=== PATIENT | female | born 1950 | race Caucasian/White ===

== ENCOUNTER 2018-01-09 08:12 | Day surgery (SDC) | payer MEDICARE ==
[2018-01-08 09:20] VITALS: BMI 34.7
--- NOTE | 2018-01-09 09:25 | RAD ---
LUMBAR SPINE 3 VIEWS: Date: 01/09/18 HISTORY: Low back pain. Degenerative disc disease. COMPARISON: None. FINDINGS: Five non-rib bearing lumbar-type vertebrae. There is severe narrowing between the L2-L5 spinous proce sses with sclerosis and remodeling. There is anterolisthesis, degenerative, of L4 over L5, 3.0 mm. Se stepan degenerative disc space disease at L5-S1. IMPRESSION: Advanced spondylosis. POS: [facility]
--- NOTE | 2018-01-09 11:48 | CT ---
CT LUMBAR SPINE WITHOUT CONTRAST: Date: 01/09/18 HISTORY: M54.5 low back pain. M51.36 degenerative disc disease. COMPARISON: Spine radiographs same date. FINDINGS: Moderate atherosclerotic plaque. There is focal ectasia of the infrarenal abdominal aorta measuring u p to 2.6 cm. This is not aneurysmal. No retroperitoneal adenopathy. No acute fracture or malalignment. There are severe degenerative changes in the spinous processes of L2-L5 with end plate sclerosis and remodeling. Levels are as follows: L1-2: Moderate posterior degenerative disc space narrowing. There is low grade posterior disc bulge. No neural foraminal or spinal canal narrowing. L2-3: Moderate degenerative posterior disc space height loss. There is a posterior disc osteophyte c omplex, broad based, narrowing the spinal canal to approximately 9.0 mm. There is mild bilateral neur al foraminal narrowing. L3-4: Moderate posterior degenerative disc space height loss. Moderate facet arthrosis. Circumferent ial disc bulge. Bilateral subforaminal disc osteophyte complexes. Moderate bilateral neural foraminal narrowing with abutment of the exiting nerve roots. Spinal canal measures approximately 8.0 mm. Mode rate ligamentum flavum hypertrophy. L4-5: Severe degenerative facet arthrosis. Ligamentum flavum hypertrophy. Anterolisthesis, degenerat kiran in nature, is approximately 3-4 mm. There is moderate bilateral neural foraminal narrowing. There is narrowing of the spinal canal approximately 5.0 mm. L5-S1: Circumferential disc bulge with large posterior disc osteophyte complex. Moderate to severe f acet arthrosis. Moderate to severe bilateral neural foraminal narrowing with abutment of the exiting nerve roots. IMPRESSION: Advanced spondylosis as described. POS: [facility]
--- NOTE | 2018-01-09 14:27 | MRI ---
MRI LUMBAR SPINE WITHOUT CONTRAST: INDICATION: History of low back pain and bilateral hip pain radiating into the feet. TECHNIQUE: Multiplanar, multisequence MR images were obtained of the lumbar spine without IV contrast. Comparis ons were made with the lumbar spine radiographs dated 01/09/2018. FINDINGS: There are 5 lumbar-type vertebrae. There is very slight grade I anterolisthesis of L4 on L5. The co nus is seen to terminate at approximately L1. No acute fracture is evident. Motion artifact heavily degrades image quality. At L5-S1, there is a broad-based disk-osteophyte complex with advanced facet joint degenerative [place] e and loss of disk space height inducing mild to moderate right and moderate to severe left neural fo raminal narrowing. At L4-5, there is a broad-based disk-osteophyte complex and facet joint degenerative change inducing moderate to severe central canal narrowing with mild to moderate bilateral neural foraminal narrowing . At L3-4, there is a broad-based bulge with facet hypertrophy inducing mild central canal stenosis wit h mild bilateral neural foraminal narrowing. At L2-3, there is a broad-based bulge and mild facet joint degenerative change. At L1-L2, there is a mild broad-based bulge. There is no appreciable central canal or neural foramin al narrowing. At T12-L1, there is a mild broad-based bulge without appreciable central canal or neural foraminal na rrowing. IMPRESSION: Multilevel spondylosis of the lumbar spine most prominent at L4-5 and L5-S1 as above. POS: [facility]
== END 2018-01-09 14:02 | disposition home or self-care (01) ==
LOC: SDC/OP 08:12 → EDSTATUS 12:00 → SDC/OP 14:02
PROVIDERS: ATTEND Physician Assistant Surgical
DX: M51.36 Other intervertebral disc degeneration, lumbar region (principal); M25.78 Osteophyte, vertebrae; M47.816 Spondylosis without myelopathy or radiculopathy, lumbar region; M43.16 Spondylolisthesis, lumbar region; M48.07 Spinal stenosis, lumbosacral region; F40.240 Claustrophobia; Z79.1 Long term (current) use of non-steroidal anti-inflammatories (NSAID); Z79.82 Long term (current) use of aspirin; Z79.891 Long term (current) use of opiate analgesic; Z79.899 Other long term (current) drug therapy; Z96.653 Presence of artificial knee joint, bilateral; Z98.890 Other specified postprocedural states
CPT/HCPCS: 72100; 72131; 72148

== ENCOUNTER 2018-03-12 07:28 | Outpatient (CLI) | payer MEDICARE ==
[2018-03-12 10:39] LABS: Hemoglobin 13.3 g/dL (12.0-16.0); Mean Corpuscular HGB CONC 33.8 g/dL (32.0-36.0); Mean Corpuscular Hemoglobin 29.5 pg (27.0-31.0); Mean Corpuscular Volume 87.3 fL (78.0-98.0); Mean Platelet Volume 7.1 fL (7.4-10.4); Platelet Count 302 thou/uL (130-400); RBC Distribution Width 12.7 % (11.5-14.5); Red Blood Cell (RBC) Count 4.51 mill/uL (4.20-5.40); White Blood Cell (WBC) Count 9.9 thou/uL (4.8-10.8)
[2018-03-12 10:46] LABS: PTT 32.1 SEC (22.9-36.1); Prothrombin Time 13.7 SEC (12.0-14.7)
[2018-03-12 10:58] LABS: Anion Gap 15 mmol/L (10-20); BUN (Urea Nitrogen) 10 mg/dL (9.8-20.1); Calc. Creatinine Clearance 0 mL/min (70-130); Calcium 9.9 mg/dL (7.8-10.44); Carbon Dioxide 21 mmol/L (23-31); Chloride 104 mmol/L (98-107); Estimated GFR-MDRD 72; Glucose 138 mg/dL (80-115); Potassium 3.8 mmol/L (3.5-5.1); Sodium 136 mmol/L (136-145)
== END 2018-03-12 07:29 | disposition home or self-care (01) ==
LOC: LABBT 07:28
PROVIDERS: ATTEND Surgery
DX: Z01.812 Encounter for preprocedural laboratory examination (principal); M48.061 Spinal stenosis, lumbar region without neurogenic claudication; M54.16 Radiculopathy, lumbar region
CPT/HCPCS: 80048; 85027; 85610; 85730

== ENCOUNTER 2018-03-19 06:10 | Day surgery (SDC) | payer MEDICARE ==
[2018-03-12 10:39] VITALS: BMI 33.0
[2018-03-19] MEDS ORDERED: CEFAZOLIN 2 GM/50 ML BAG ONE (07:50)
[2018-03-19] MEDS ORDERED: Midazolam HCl 2 mg/2 ml Vial ONE (09:38)
[2018-03-19] MEDS ORDERED: Sodium Chloride 0.9% 10 ML ONE (09:41)
[2018-03-19] MEDS ORDERED: Thrombin 5000 UNITS/5 ML VIAL ONE (09:41)
[2018-03-19] MEDS ORDERED: Bacitracin Zinc Ointment 30 gm TUBE ONE (09:41)
[2018-03-19] MEDS ORDERED: Fentanyl 100 MCG/2 ML VIAL ONE ×3 (09:45→12:50)
[2018-03-19] MEDS ORDERED: ePHEDrine/0.9% NaCl/PF SYRINGE 50 mg/10 ml ONE ×2 (10:37→15:07)
[2018-03-19] MEDS ORDERED: Acetaminophen/Codeine 30-300mg Tablet PO PRN (12:46)
[2018-03-19] MEDS ORDERED: Acetaminophen 325 MG TAB PO PRN (12:46)
[2018-03-19] MEDS ORDERED: Morphine 2 MG/ML SYRINGE SLOW IVP PRN (12:46)
[2018-03-19] MEDS ORDERED: Milk Of Magnesia 30 ML UDCUP PO PRN (12:46)
[2018-03-19] MEDS ORDERED: Fleet Enema 133 ML BOT PR PRN (12:46)
[2018-03-19] MEDS ORDERED: HYDROcodone/Acetaminophen 7.5/325 mg Tablet PO PRN (12:46)
[2018-03-19] MEDS ORDERED: Bisacodyl 10 MG SUPP PR PRN (12:46)
[2018-03-19] MEDS ORDERED: Mag-Al 1200 mg/1200 mg/30 ML UDCUP PO PRN (12:46)
[2018-03-19] MEDS ORDERED: CEFAZOLIN/Water 2 GM/20 ML SYRINGE SLOW IVP SCH (13:00)
[2018-03-19] MEDS ORDERED: Lidocaine 1% PF 5 ML VIAL ONE (15:07)
[2018-03-19] MEDS ORDERED: Metoclopramide HCl 10 MG/2 ML VIAL ONE (15:07)
[2018-03-19] MEDS ORDERED: Rocuronium Bromide 10 MG/ML (10ML VIAL) ONE (15:07)
[2018-03-19] MEDS ORDERED: Ondansetron PF 4 MG/2 ML Vial ONE (15:07)
[2018-03-19] MEDS ORDERED: PHENYLEPHRINE-NS 100 MCG/ML 10 ML SYRINGE ONE (15:07)
[2018-03-19] MEDS ORDERED: Ketorolac Tromethamine 30 MG/ML VIAL ONE (15:07)
[2018-03-19] MEDS ORDERED: Dexamethasone 20 MG/5 ML VIAL ONE (15:07)
[2018-03-19] MEDS ORDERED: diphenhydrAMINE 50 MG/ML VIAL ONE (15:07)
[2018-03-19] MEDS ORDERED: PROPOFOL 200 MG/20 ML VIAL ONE (15:07)
[2018-03-19] MEDS ORDERED: Glycopyrrolate 0.2 MG/ML 5 ML SYRINGE ONE (15:07)
[2018-03-19] MEDS: CEFAZOLIN 2 GM/50 ML-DEXTROSE 2 GM in Premix Bag 1 BAG IVPB SCH ×2 (16:00→23:36)
[2018-03-19] MEDS: Cyclobenzaprine 10 MG TAB PO PRN (19:40)
[2018-03-19] MEDS: traMADol HCl 50 MG TAB PO PRN (19:40)
[2018-03-19] MEDS ORDERED: hydrOXYzine 25 MG TAB PO SCH (21:00)
[2018-03-20] MEDS: traMADol HCl 50 MG TAB PO PRN (06:42)
[2018-03-20] MEDS: Cyclobenzaprine 10 MG TAB PO PRN (06:42)
[2018-03-20 07:57] VITALS: BP 120/61; TEMP 98.5
[2018-03-20] MEDS ORDERED: Citalopram 20 MG TAB PO SCH (09:00)
--- NOTE | 2018-03-20 10:42 | OP ---
DATE OF PROCEDURE: 03/19/2018 OPERATING ROOM: OR 11. WOUND CLASSIFICATION: Type 1 wound. [employer] BOOKKEEPER: Erwin Green PA-C. PREPROCEDURE DIAGNOSIS: Lumbar stenosis with low back and leg pain with lateral disk extrusion. POSTPROCEDURE DIAGNOSIS: Lumbar stenosis with low back and leg pain with lateral disk extrusion. PROCEDURES PERFORMED: 1. L4-L5 and L5-S1 laminectomies, partial facetectomies, and foraminotomies. 2. Left L5-S1 transfacet approach for decompression of spinal cord and nerve roots with lateral diskectomy. 3. Use of operative microscope for microdissection. DESCRIPTION OF PROCEDURE: After informed consent was obtained from the patient, the patient was positioned in prone. Proper patient, pause, and identification were carried out. The wound was then sterilely cleansed, prepared and draped. Proper patient, pause, and identification were carried out again. The wound was then opened with a combination of sharp, monopolar, and blunt dissection. The L4, L5, and S1 dorsal spines and lamina were identified and removed. Following localization, we had excellent decompression of the common dural tube. We worked out in the left L5-S1 transfacet region and foramen to decompress the left L5 nerve root. An osteophytic disc was identified and soft fragments were removed. I was satisfied with the decompression of left L5 root. Copious irrigation occurred throughout. The wound was then closed in anatomic layers following hemostasis and sprinkled vancomycin powder. The patient then emerged from anesthesia. Job ID: [id number]
--- NOTE | 2018-03-20 20:55 | EKG ---
Test Reason : PREOP Blood Pressure : / mmHG Vent. Rate : 060 BPM Atrial Rate : 060 BPM P-R Int : 146 ms QRS Dur : 086 ms QT Int : 446 ms P-R-T Axes : 052 000 021 degrees QTc Int : 446 ms Normal sinus rhythm Normal ECG When compared with ECG of 19-JUN-2016 11:47, No significant change was found Confirmed by Jennifer GRIMM ([id number]) on 03/20/2018 8:55:15 PM Referred By: DERRICK Confirmed By:Jennifer GRIMM
== END 2018-03-20 10:51 | disposition home or self-care (01) ==
LOC: SDC 06:10 → SJJU 14:05 → SDC 03-20 10:51
PROVIDERS: ATTEND Surgery
PROC: 01NB0ZZ Release Lumbar Nerve, Open Approach (ICD-10-PCS; principal; 2018-03-19)
PROC: 0SB20ZZ Excision of Lumbar Vertebral Disc, Open Approach (ICD-10-PCS; 2018-03-19)
DX: M48.061 Spinal stenosis, lumbar region without neurogenic claudication (principal); M51.26 Other intervertebral disc displacement, lumbar region; M43.16 Spondylolisthesis, lumbar region; Z96.653 Presence of artificial knee joint, bilateral; Z96.641 Presence of right artificial hip joint; Z79.1 Long term (current) use of non-steroidal anti-inflammatories (NSAID); Z79.899 Other long term (current) drug therapy
CPT/HCPCS: 76000; 93005; 93010; 96374; J1100; J1200; J1885; J2001; J2250; J2405; J2704; J2765; J3010; J3370; J3490

== ENCOUNTER 2018-05-07 10:31 | Outpatient (CLI) | payer MEDICARE ==
--- NOTE | 2018-05-07 11:24 | MMO ---
Bilateral MAMMO Bilat Screen [facility]. CLINICAL HISTORY: Patient is 67 years old and is seen for screening. The patient has no family history of breast cancer. The patient has no personal history of cancer. VIEWS: The views performed were: bilateral craniocaudal; bilateral craniocaudal with tomosynthesis; bilateral mediolateral oblique; and bilateral mediolateral oblique with tomosynthesis. FILMS COMPARED: The present examination has been compared to prior imaging studies performed at [facility] on 04/05/2013, and at [facility] on 12/25/2007 and 10/02/2011. MAMMOGRAM FINDINGS: The breasts are almost entirely fat. There are benign appearing calcifications seen in both breasts. There are no suspicious masses, calcifications or areas of architectural distortion. IMPRESSION: CALCIFICATIONS IN BOTH BREASTS ARE BENIGN. A ROUTINE FOLLOW-UP MAMMOGRAM IN 1 YEAR IS RECOMMENDED. THE RESULTS OF THIS EXAM WERE SENT TO THE PATIENT. ACR BI-RADS Category 2 - Benign finding MAMMOGRAPHY NOTE: 1. A negative mammogram report should not delay a biopsy if a dominant of clinically suspicious mass is present. 2. Approximately 10% to 15% of breast cancers are not detected by mammography. 3. Adenosis and dense breasts may obscure an underlying neoplasm.
== END 2018-05-07 10:32 | disposition home or self-care (01) ==
LOC: BICMAMMO 10:31
PROVIDERS: ATTEND Family Medicine
DX: Z12.31 Encounter for screening mammogram for malignant neoplasm of breast (principal); R92.1 Mammographic calcification found on diagnostic imaging of breast
CPT/HCPCS: 77063; 77067

== ENCOUNTER 2018-09-11 12:26 | Outpatient (CLI) | payer MEDICARE ==
--- NOTE | 2018-09-11 13:22 | ULT ---
GALLBLADDER ULTRASOUND: HISTORY:Elevated liver enzymes FINDINGS: Exam is limited due to bowel gas. The patient is post cholecystectomy. Dilated intrahepatic biliary ducts are present. No definite hepa tic mass is identified. The common duct measures 1 mm in diameter. The pancreas is not visualized due to overlying bowel gas. The right kidney is unremarkable. No free fluid is seen in the Brian's pouch. IMPRESSION: Limited exam due to the overlying bowel gas. Further evaluation with contrast enhanced CT scan is recommended
== END 2018-09-11 12:27 | disposition home or self-care (01) ==
LOC: BICULT 12:26
PROVIDERS: ATTEND Family Medicine
DX: R74.8 Abnormal levels of other serum enzymes (principal)
CPT/HCPCS: 76705

== ENCOUNTER 2018-09-12 11:37 | Inpatient (IN) | payer MEDICARE ==
[2018-09-12] MEDS ORDERED: ISOVUE-370 76%-LOCM 1 ML ONE (11:54)
[2018-09-12] MEDS ORDERED: Ondansetron PF 4 MG/2 ML Vial ONE (12:02)
[2018-09-12 12:37] LABS: #Basophils 0.1 thou/uL (0.0-0.2); #Eosinphils 0.2 thou/uL (0.0-0.7); #Lymphocytes 2.2 thou/uL (1.20-3.40); #Monocytes 0.9 thou/uL (0.11-0.59); #Neutrophils 6.6 thou/uL (1.40-6.50); %Basophils 0.7 % (0.0-1.0); %Eosinophils 2.2 % (0.0-10.0); %Lymphocytes 22.3 % (21.0-51.0); %Monocytes 9.4 % (0.0-10.0); %Neutrophils 65.4 % (42.0-75.0); Hemoglobin 12.9 g/dL (12.0-16.0); Mean Corpuscular HGB CONC 32.6 g/dL (32.0-36.0); Mean Corpuscular Hemoglobin 31.2 pg (27.0-31.0); Mean Corpuscular Volume 95.7 fL (78.0-98.0); Mean Platelet Volume 9.4 fL (7.4-10.4); Platelet Count 289 thou/uL (130-400); RBC Distribution Width 16.4 % (11.5-14.5); Red Blood Cell (RBC) Count 4.13 mill/uL (4.20-5.40)
[2018-09-12 12:48] LABS: ALT (SGPT) 86 U/L (8-55); AST (SGOT) 157 U/L (5-34); Albumin 3.6 g/dL (3.4-4.8); Alkaline Phosphatase 359 U/L (40-150); Anion Gap 12 mmol/L (10-20); BUN (Urea Nitrogen) 10 mg/dL (9.8-20.1); Calc. Creatinine Clearance 0 mL/min (70-130); Calcium 10.1 mg/dL (7.8-10.44); Carbon Dioxide 27 mmol/L (23-31); Chloride 102 mmol/L (98-107); Estimated GFR-MDRD 83; Globulin 3.7 g/dL (2.4-3.5); Glucose 124 mg/dL (80-115); Lipase Less than 4 U/L (8-78); Potassium 3.6 mmol/L (3.5-5.1); Protein, Total 7.3 g/dL (6.0-8.3); Sodium 137 mmol/L (136-145)
--- NOTE | 2018-09-12 13:03 | CT ---
CT abdomen and pelvis with IV contrast. Oral contrast was not administered. INDICATIONS: Abdominal pain and jaundice COMPARISON: 04/21/2012 FINDINGS: 7 mm nodule posterior left lung base. 6 mm nodule posterior right lung base. There is intra and extrahepatic biliary duct dilatation which is new when compared to prior exam. Pat ient is post cholecystectomy. Dilatation of the pancreatic duct. Etiology for ductal obstruction is not apparent on CT. No evidence of pancreatic mass by CT. Stomach and duodenum appear unremarkable. Adrenal glands appear normal. Kidneys show no hydronephrosis. Tiny cystic lesions left kidney stable. Urinary bladder contracted and not adequately evaluated Small bowel loops are normal caliber and exhibit normal fold pattern. Appendix not identified. There is free fluid in right lower quadrant and right pelvis. Colon is unremarkable. Aorta is ectatic but stable in appearance from prior exam. Focal area of dilatation mid abdominal aor ta measures 2.6 cm. This is stable from prior exam. Nonspecific mesenteric lymph nodes seen near the aortic bifurcation measuring 1.2 cm. Images through pelvis show evidence of hysterectomy. Radiopaque suture like material lung anterior right abdominal wall from prior surgical procedure is s table. Osseous structures appear unremarkable. IMPRESSION: 1. Intra and extra hepatic biliary duct dilatation. Pancreatic duct dilatation. Etiology is not appar ent on this study. No pancreatic mass lesion identified. Ampullary lesion should be excluded. Recommend GI consultation. 2. Free fluid in the right lower quadrant and right pelvis.
[2018-09-12 13:31] LABS: Bilirubin Large (Negative); Blood, Urine Trace (Negative); Glucose, Urine (Dipstick) 100 mg/dL (Negative); Leukocyte Small (Negative); Nitrite Positive (Negative); Protein, Urine (Dipstick) 30 mg/dL (Neg-Trace)
[2018-09-12 13:35] LABS: Clarity Cloudy (Clear)
[2018-09-12 13:47] LABS: RBC/HPF 0-3 HPF (0-3); Squamous Epithelial 0-3 HPF (0-3); WBC/HPF 21-50 HPF (0-3)
[2018-09-12 13:48] LABS: Bacteria/HPF 4+ HPF (None Seen)
[2018-09-12 16:43] VITALS: BMI 31.6
[2018-09-12] MEDS ORDERED: Ondansetron PF 4 MG/2 ML Vial IVP PRN ×2 (17:00→17:06)
[2018-09-12] MEDS ORDERED: Ondansetron ODT 4 MG TAB SL PRN (17:00)
[2018-09-12] MEDS ORDERED: Sodium Chloride 0.9% 1,000 ML IV SCH ×2 (17:00→17:15)
[2018-09-12] MEDS ORDERED: Bisacodyl 5 MG TAB PO PRN (17:06)
[2018-09-12] MEDS ORDERED: cefTRIAXone\\ROCEPHIN 1 GM in Sodium Chloride 0.9% 100 ML IVPB SCH (17:30)
--- NOTE | 2018-09-12 18:09 | HP ---
PRIMARY CARE PROVIDER: Dr. Lauren Rosa. CHIEF COMPLAINT: Jaundice. HISTORY OF PRESENT ILLNESS: Ms. Klein is a pleasant 68-year-old lady, who was seen at [facility] on September 12, 2018. She reports that over the last one month, she has been having nausea, vomiting, and diarrhea. She denies any blood in vomitus or stool. She reports that her stools have been light colored. She went from 230 pounds to 196.5 pounds over the last one month. She attributes it to inability to eat secondary to nausea. Her reports that he noticed her eyes were yellow over the last week. Today, she also noticed that her skin was yellow. She was seen by her primary care provider recently. She had abdominal ultrasound done yesterday. Her brought her to the emergency room because of the yellow skin. The patient reports dysuria. She also reports upper abdominal discomfort, but is unable to characterize it further. REVIEW OF SYSTEMS: All other systems were reviewed and found to be negative. PAST MEDICAL HISTORY: Obstructive sleep apnea syndrome on CPAP therapy, borderline diabetes, hypertension, depression, and osteoarthritis. PAST SURGICAL HISTORY: Right total hip arthroplasty, right knee arthroplasty, left knee arthroplasty, lumbar laminectomy for lumbar spinal stenosis and decompression of spinal cord and nerve roots. She also reports that she had abdominal surgeries and she had 7 cm of her colon removed. She also reports complications from intrauterine device. She also has a history of cholecystectomy. SOCIAL HISTORY: The patient denies tobacco use or recreational drug use. She reports rare alcohol use. FAMILY HISTORY: Significant for hypertension. The patient denies any history of malignancy or coronary artery disease in the family. CODE STATUS: I discussed her code status. She is full code. ALLERGIES: NO KNOWN DRUG ALLERGIES. CURRENT MEDICATIONS: 1. Escitalopram 20 mg daily. 2. Metoprolol succinate 50 mg daily. 3. She also reports using tramadol and meloxicam. She denies any acetaminophen use. PHYSICAL EXAMINATION: GENERAL: On examination, Ms. Klein is awake and alert, not in acute distress. VITAL SIGNS: Blood pressure is 122/74, pulse 63, respiratory rate 19, and oxygen saturation 98% on room air. She is afebrile. EYES: She has scleral icterus. No conjunctival pallor. ENT: Moist mucosal membranes. No oropharyngeal erythema or exudates. NECK: Supple and nontender. Trachea is midline. RESPIRATORY: Accessory muscles of breathing are not active. Chest wall movements are symmetric bilaterally. LUNGS: Clear to auscultation without wheeze, rhonchi, or crepitations. CARDIOVASCULAR: S1 and S2 are heard, regular. Peripheral pulses palpable. No carotid bruit. No pericardial rub. ABDOMEN: Soft, mild epigastric and left upper quadrant tenderness, no guarding or rigidity. Bowel sounds are heard. No hepatomegaly or splenomegaly. NEUROLOGIC: Cranial nerves 2 through 12 intact. Deep tendon reflexes 2+. MUSCULOSKELETAL: Power is 5/5 in all 4 extremities. SKIN: No rashes or subcutaneous nodules. LYMPHATIC: No cervical lymphadenopathy. PSYCHIATRIC: Normal mood, normal affect. The patient is oriented to person, place, and time. LABORATORY DATA: Ms. Klein's labs and investigations were reviewed. She has normal white count, normal hemoglobin, normal platelet count, normal electrolytes, normal creatinine, normal lactic acid, normal calcium. Total bilirubin is elevated at 19.0, it was 17.1 on September 09. AST is elevated at 157, decreased from 194 on September 09. ALT is elevated at 86, decreased from 109 on September 09. Alkaline phosphatase is elevated at 359, decreased from 379 on September 09. Albumin is normal. Urinalysis is positive for protein, glucose, ketones, blood, nitrite, and small amount of leukocyte esterase. Urine bilirubin is positive as well. IMAGING STUDIES: On September 11, she had abdominal ultrasound, which was limited exam due to overlying bowel gas. She had dilated intrahepatic biliary ducts. Common duct measured 1 mm in diameter. Today, she had CT scan of the abdomen and pelvis with IV contrast, no oral contrast. She had intra and extrahepatic biliary duct dilatation and pancreatic duct dilatation. No pancreatic mass lesion was identified. Radiologist reports that ampullary lesion should be excluded. She also had free fluid in the right lower quadrant and right pelvis. ASSESSMENT AND PLAN: Ms. Klein is a pleasant 68-year-old lady, who was seen at [facility] on September 12, 2018. Her problem list includes: 1. Obstructive jaundice: Etiology is unclear. The patient will be admitted to the hospital for further management. Her LFTs actually appear to be trending down over the last few days. We will recheck her LFTs. We will consult GI Service. We will keep her n.p.o. after midnight in case she needs endoscopic retrograde cholangiopancreatography. 2. Hypertension: We will continue her beta alem, monitor vital signs and titrate antihypertensives as needed. 3. Depression: Moderate, stable, continue escitalopram. 4. Urinary tract infection: She has dysuria and evidence of urinary tract infection. We will start her on empiric ceftriaxone and await urine cultures. 5. Obstructive sleep apnea syndrome: The patient to use her CPAP machine. Many thanks for allowing me to participate in your patient's care. Please feel free to contact me with any questions or concerns. LEVEL OF RISK: Moderate. LEVEL OF COMPLEXITY: Moderate. ESTIMATED LENGTH OF STAY: Greater than 2 midnights. Job ID: [id number]
[2018-09-12 19:12] VITALS: BP 134/80; TEMP 99
--- NOTE | 2018-09-13 01:14 | CON ---
DATE OF CONSULTATION: 09/12/2018 REQUESTING PHYSICIAN: Dr. Jere Quintero. REASON FOR CONSULTATION: Jaundice, nausea and vomiting. HISTORY OF PRESENT ILLNESS: Ms. Irma Klein is a very pleasant 68-year-old woman with a history of sleep apnea, cholecystectomy, and remote history of complication of an intrauterine device requiring hysterectomy as well as partial colon resection. She also has remote history of peptic ulcer disease. She has no chronic gastrointestinal symptoms. About a month ago, she started developing nausea, occasional vomiting and diarrhea with acholic stools. Her urine started to get dark and she started to get full body pruritus. Over the past week, her noticed that she had scleral icterus and then just over the past few days, she was noted to be grossly jaundiced. Over this time frame, she has lost significant weight going from 230 to 196 pounds over just a month. She saw her PCP just 3 days ago and had labs, which showed bilirubin elevation to 17. She had an abdominal ultrasound showing common bile duct dilation. She presented to the hospital for further evaluation today. Upon admission, she had a CT scan of the abdomen and pelvis and this demonstrates intra and extrahepatic dilation of the pancreatic duct, no clear mass visualized to explain the obstruction, but ampullary mass could not be excluded. She is currently resting comfortably. She is hemodynamically stable. There has been no melena or hematochezia. No fever. She has had some dysuria and urinalysis is suggestive of urinary infection. PAST MEDICAL HISTORY: Obstructive sleep apnea, borderline diabetes, hypertension, depression, osteoarthritis, right total hip arthroplasty, right knee arthroplasty, left knee arthroplasty, lumbar laminectomy, intrauterine device complication requiring hysterectomy and 7 cm partial colectomy, cholecystectomy. SOCIAL HISTORY: She is a former smoker. Alcohol use is rare. No drug use. FAMILY HISTORY: Negative for any gastrointestinal, pancreatic or liver disease. ALLERGIES: NO KNOWN DRUG ALLERGIES. OUTPATIENT MEDICATIONS: 1. Escitalopram 20 mg daily. 2. Metoprolol 50 mg daily. 3. Tramadol p.r.n. 4. Meloxicam p.r.n. She denies any acetaminophen use. REVIEW OF SYSTEMS: Full review of systems including constitutional, head, eyes, ears, nose, throat, GI, , cardiovascular, respiratory, musculoskeletal, neurologic systems is negative except as noted in the HPI. PHYSICAL EXAMINATION: VITAL SIGNS: Temperature 97.4, pulse 66, blood pressure 122/57, 99% oxygen saturation on room air. GENERAL: Obese, 68-year-old woman, lying in bed comfortably, in no acute distress. She is grossly jaundiced. SKIN: Grossly jaundiced. She has excoriations across the trunk and extremities from full body pruritus, no other rash. EYES: She has scleral icterus. Extraocular movements intact. ENT: Mucous membranes moist. No oral lesions. LYMPH: No submandibular or supraclavicular lymphadenopathy. THYROID: Nontender to palpation. HEART: Regular rate and rhythm. LUNGS: Clear to auscultation bilaterally. ABDOMEN: Obese, bowel sounds present. Soft. Some tenderness to palpation in the upper abdomen, but no guarding, rebound tenderness. EXTREMITIES: No peripheral edema. VESSELS: Radial pulses 2+ bilaterally. NEUROLOGIC: Cranial nerves 2-12 intact bilaterally. No focal deficits. LABORATORY STUDIES: WBC 10.0, hemoglobin 12.9, platelets 289. Sodium 137, potassium 3.6, BUN 10, creatinine 0.70, glucose 124, lactic acid 1.2, calcium 10.1, total bilirubin 19.0, alkaline phosphatase 359, AST 157, ALT 86, albumin 3.6. Lipase less than 4. Urinalysis shows 21-50 WBCs, positive for nitrites and leukocyte esterase. IMAGING STUDIES: CT of the abdomen and pelvis performed earlier today demonstrates intra and extrahepatic biliary dilation, which is new compared to a prior exam. Her pancreatic duct is also dilated. The etiology for the ductal obstruction is not apparent on the CT. There is no pancreatic mass lesion identified by CT. Ampullary lesion is not excluded. There was some free fluid in the pelvis. Small bowel loops are normal in caliber. Stomach and duodenum appear normal. ASSESSMENT/PLAN: 1. Obstructive jaundice. 2. Abnormal unintentional weight loss. 3. Nausea and vomiting, secondary to biliary obstruction. The patient's presentation is of subacute obstructive jaundice, complete with the acholic stools and pruritus. There is no fever, abdominal pain is mild, no evidence of cholangitis. I had a carla discussion with the patient that her presentation is quite concerning for malignant process either of the ampulla, the biliary tree or the pancreas. We could perform endoscopic retrograde cholangiopancreatography here for stent placement in the bile duct, but this would be limited in diagnostic utility. I think she would best be served at a tertiary center with capability for both endoscopic ultrasound and ERCP, in the interest of providing the best diagnostic and therapeutic modalities. I recommend that we pursue transfer to a tertiary center for endoscopic ultrasound and endoscopic retrograde cholangiopancreatography. The patient is agreeable to this. In the meantime, the patient has been started on ceftriaxone. 4. I have communicated my recommendations to Dr. Quintero. Thank you for the consultation. Please call anytime with questions or concerns. Job ID: [id number]
--- NOTE | 2018-09-13 21:06 | DIS ---
DATE OF ADMISSION: 09/12/2018 DATE OF DISCHARGE: 09/12/2018 PRIMARY CARE PROVIDER: Dr. Rosa. DISCHARGE DIAGNOSES: 1. Obstructive jaundice. 2. Urinary tract infection. HOSPITAL COURSE: Ms. Klein is a pleasant 68-year-old lady who was admitted to [facility] on 09/12/2018, for obstructive jaundice. She was seen by Gastroenterology Service. Gastroenterology Service recommended transfer to a higher level of care facility so that she can have endoscopic ultrasound and ERCP. The patient was transferred to [facility] for further management. Many thanks for allowing me to participate in your patient's care. Please feel free to contact me with any questions or concerns. Job ID: [id number]
== END 2018-09-12 22:20 | disposition short-term general hospital (02) | DRG 445 ==
LOC: ERS 11:37 → T4-B 13:45
PROVIDERS: ADMIT Internal Medicine; ATTEND Internal Medicine
DX: K83.1 Obstruction of bile duct (principal); N39.0 Urinary tract infection, site not specified; B96.20 Unspecified Escherichia coli [E. coli] as the cause of diseases classified elsewhere; E11.9 Type 2 diabetes mellitus without complications; I10 Essential (primary) hypertension; M19.90 Unspecified osteoarthritis, unspecified site; F32.9 Major depressive disorder, single episode, unspecified; R63.4 Abnormal weight loss; G47.33 Obstructive sleep apnea (adult) (pediatric); Z96.641 Presence of right artificial hip joint; Z96.652 Presence of left artificial knee joint; Z79.899 Other long term (current) drug therapy; Z87.891 Personal history of nicotine dependence; Z68.31 Body mass index [BMI] 31.0-31.9, adult
CPT/HCPCS: 36415; 74177; 76705; 80053; 80074; 81003; 81015; 83036; 83605; 83690; 85025; 87077; 87086; 87186; J0696; J2405; J3490